=== PATIENT | female | born 1945 | race Caucasian/White ===

== ENCOUNTER → 2024-03-04 14:36 | Outpatient (REF) | payer OTHER, SELFPAY | LOC: RAD 14:36 | PROVIDERS: ATTENDING PHYSICIAN Registered Nurse | DX: M81.0 Age-related osteoporosis without current pathological fracture (principal) | CPT/HCPCS: 77080 ==

== ENCOUNTER 2024-06-23 21:18 | Emergency (ER) | payer OTHER, SELFPAY ==
[2024-06-23 21:35] VITALS: BP 168/77
[2024-06-23 21:53] LABS: % Basophils 0.6 % (0-2); % Eosinophils 0.8 % (0-6); % Immature Granulocytes 0.3 % (0-0.5); % Neutrophils 65.3 % (42.2-75.2); Absolute Eosinophils 0.1 10^3/uL (0-0.7); Absolute Lymphocytes 1.6 10^3/uL (1.2-3.4); Absolute Monocytes 0.5 10^3/uL (0.1-0.6); Absolute Neutrophils 4.2 10^3/uL (1.4-6.5); Hematocrit 39.6 % (37.0-47.0); Hemoglobin 13.9 g/dL (12.0-16.0); Mean Corp Hgb Conc. 35.1 g/dL (33.0-37.0); Mean Corpuscular Volume 82.7 fL (81.0-99.0); Mean Platelet Volume 9.2 fL (7.4-10.4); Nucleated Red Blood Cells % 0 %; Platelet Count 176 10^3/uL (130-400); Red Blood Cell Count 4.79 10^6/uL (4.20-5.40); Red Cell Dist. Width 12.5 % (11.5-14.5); White Blood Cell Count 6.5 10^3/uL (4.8-10.8)
[2024-06-23 22:07] LABS: ALT (SGPT) 22 U/L (0-35); AST (SGOT) 34 U/L (14-36); Alkaline Phosphatase 69 U/L (38-126); Blood Urea Nitrogen 15 mg/dl (7-17); Calcium 9.9 mg/dl (8.4-10.2); Carbon Dioxide 26 mmol/L (22-30); Chloride 98 mmol/L (98-107); Glucose 121 mg/dl (70-99); Lipase 166 U/L (23-300); Potassium 4.6 mmol/L (3.5-5.1); Sodium 137 mmol/L (135-145); Total Bilirubin 1.1 mg/dl (0.2-1.3); Total Protein 7.5 g/dl (6.3-8.2); eGFR > 60.00
--- NOTE | 2024-06-24 01:15 | ED.GENMED ---
History of Present Illness
General
Chief Complaint: Abdominal Pain
Source: patient
Exam Limitations: none
Time Seen by Provider: 06/24/24 00:58
History of Present Illness
History of Present Illness:
This is a 78 year old female that comes in with c/o right sided abd pain. States that she had a Hemorrhoid banding yesterday. States that she took Tylenol X 3 for her pain after dinner. Then about 1.5 hours later she started with pain on the right
upper abd that her states was a 10/10. States that she thought that if she rested it would get butter. States that it was a sharp pain and she thought it was a gallbladder attack as she knows she has gallstones. States that this continued
and she also had some labored breathing with the pain and was sweating. States that she only has a twinge now. States that she was also nauseated with the pain. Denies any fever, chills, chest pain, SOB, vomiting, diarrhea, headache, dizziness,
urinary burning.
Past History
Past History
ED Past Medical History: Hypercholesterolemia and Other (Neck pain, UTI, Gallstones)
ED Past Surgical History: Gynecological (D&C), Orthopedic (Left elbow surgery) and Other (Hemorrhoid banding, Cataracts )
Social History
Tobacco: Non-smoker
Alcohol: Occasional
Personal:
Living: with family
Review of Systems
Review of Systems
All Other Systems: ROS reviewed and negative except as documented in HPI and ROS
Constitutional: Reports no symptoms; Denies fever or chills
EENT: Reports no symptoms
Respiratory: Reports no symptoms; Denies cough or trouble breathing
Cardiac: Reports no symptoms; Denies chest pain
ABD/GI: Reports abdominal pain (Right sided) and nausea; Denies vomiting or diarrhea
: Reports no symptoms; Denies dysuria, frequency or urgency
Musculoskeletal: Reports no symptoms
Skin: Reports no symptoms
Neurological: Reports no symptoms; Denies dizzy or headache
Psychiatric: Reports no symptoms
Phy Exam
General Physical Exam
General Presentation: well appearing and no apparent distress
General age: appears stated age
General Skin: warm and dry
General Habitus: elderly
General Mental: alert
General Hydration: dry mucous membranes
ENT Exam
ENT Exam: TM's normal, pharynx normal and neck supple
Eye Exam
Eye Exam: EOMI
Cardiovascular Exam
Cardiovascular Exam: regular rate/rhythm, no edema, no murmur and normal peripheral pulses
Pulmonary Exam
Pulmonary Exam: lungs clear, no respiratory distress, no rales, chest non tender, no crackles, no rhonchi, no wheezing and no cough
Gastrointestinal Exam
Gastrointestinal Exam: normal bowel sounds, soft, no organomegaly, no pulsatile mass, non distended and tender (Epigastric and RUQ tenderness with palpation)
Musculoskeletal Exam
Musculoskeletal Exam: full ROM and no edema
Skin Exam
Skin Exam: normal color, warm/dry, no rash and no petechia
Psychiatric Exam
Psychiatric Exam: normal mood/affect
Course
Orders/Labs/Results
Orders:
Orders
06/23/24 21:38
IV Insert/Care/Rem.- Treatment PRN
06/23/24 21:43
Complete Blood Count/With Diff Urgent
Comprehensive Metabolic Panel Urgent
Lipase Urgent
06/24/24 01:14
0.9% Sodium Chloride 1000 ml [Nss] 1,000 ml IV BOLUS
US Abdomen Complete/Upper Urgent
Comment:
Reason For Exam: Upper abd pain
06/24/24 01:29
Urinalysis Reflex To Culture Urgent
Date Specimen was Collected: 06/24/24
Time Specimen was Collected: 01:26
Abnormal Lab Results
06/23/24
21:43
Glucose 121 H mg/dl
(70-99)
06/23/24 21:43
06/23/24 21:43
Hyperglycemia, Lipase normal at 166
Vital Signs
Initial and Last Documented VS:
Initial Vital Signs
Temp Pulse Resp BP Pulse Ox
97.9 F 58 19 168/77 100
06/23/24 21:35 06/23/24 21:35 06/23/24 21:35 06/23/24 21:35 06/23/24 21:35
Last Documented Vital Signs
Temp Pulse Resp BP Pulse Ox
97.9 F 58 19 177/76 98
06/23/24 21:35 06/23/24 21:35 06/23/24 21:35 06/24/24 01:31 06/24/24 01:31
MDM/Problems Addressed
Differential Diagnosis Includes:
Gallbladder disease, Renal calculus
MDM/Problems Addressed:
This is a 78 year old female that comes in with c/o right sided upper abd pain. States that this started tonight after her dinner. States that she thought was a gallbladder attack but she has never had one. States that she had labored breathing and
broke out into a sweat.
Will get labs and US. Will get urine and give IV fluids. Patient refused pain medication at this time.
Back into see patient. Explained that her blood work is normal. Your US shows that your gallbladder is fulled with gallstones. There is no gallbladder wall thickening or ductal dilation. Explained that this could have been a gallbladder attack.
Patient to stay on a low fat diet. Follow up with the family doctor. Return with any concerns.
Chronic conditions affecting care:
Gallstones,
Acute Exacerbation and/or Progression of Chronic Illness:
Gallstones
*Radiology
Radiology exam reviewed: radiology read reviewed (US-Gallbladder full of gallstones. No sonographic Sellers's sign, wall thickening, pericholecystic fluid, or other signs of cholecystitis. Common bile duct is unremarkable. Bilateral renal cyst
measuring 2.5cm on the right and 3cm on the left. Remainder of the visualized upper abdomen is uremarkable.)
*Pulse Oximetry
Patient hypoxic: no
*EKG
Interpreted by ED Provider?: NA
Rate: EKG- N/A
*Hay Sorter Interpretation
Rate: Hay Sorter- N/A
*Critical Care Note
Total Time (30-74mins, 75-104mins- exclusive of procedures): Not Applicable
ED Attending Note
-
Portions of this chart may have been created with voice recognition software.� Occasional wrong word or��sound alike� substitutions may have occurred due to the inherent limitations of voice recognition software.
Discharge Plan
Departure
Patient Disposition: Home (Routine Discharge)
Date of Disposition: 06/24/24
Time of Disposition: 03:05
Patient with high blood pressure during this ER visit?: Yes
Condition: Good
Covid-19: Not Applicable
Discharge Problem:
Acute upper abdominal pain
Instructions: Low-fat diet, Abdominal Pain, BLOOD PRESSURE
Prescriptions:
No Action
atorvastatin 10 MG tablet
20 mg PO .4X PER WK
Patient Comments:
M, W, F
vitamin B complex 1 TAB tablet
1 tab PO DAILY
cholecalciferol (vitamin D3) 1,000 UNITS tablet
1,000 units PO DAILY
fish,bora,flax oils-[id number] [[place] 3-6-9 Complex] 400 MG capsule
1 ea PO DAILY
Lion's Maulik Mushroom
550 mg PO DAILY
Ascorbic Acid/Ascorbate Sodium [Vitamin C 500 Mg Tablet Chew] 500 MG Tab.Chew
1,000 mg PO DAILY
Elderberry
400 mg PO DAILY
Zinc
6 mg PO DAILY
Activity Restrictions/Additional Instructions:
As discussed, your blood work is normal. Your US is shows that you have Gallstones but there is no acute gallbladder disease. Please stay on a low fat diet. Follow up with the family doctor for recheck. IF YOU HAVE INCREASED OR CHANGING PAIN, OR
YOU HAVE ANY OTHER CONCERNS PLEASE RETURN TO THE EMERGENCY ROOM.
Interventions
Interventions:
*Risk Screen - Suicide Last Done: 06/23/24 21:35
*General Assessment Last Done: 06/23/24 21:35
*Neglect/Abuse Screening Last Done: 06/23/24 21:35
ED- Fall Risk Assessment Last Done: 06/24/24 01:40
*ED COVID-19 Vaccine History Last Done: 06/23/24 21:35
WO-Gfkwjn-Njjlygmgwy Assessment Last Done: 06/24/24 01:40
Discharge Date and Time
Print Language: NEPALESE
[2024-06-24 01:31] VITALS: BP 177/76
[2024-06-24] MEDS: NSS 1000 IV (01:38)
[2024-06-24 01:40] VITALS: BMI 23.2
[2024-06-24 01:52] LABS: Urine Albumin Negative (Neg - Trace); Urine Bilirubin Negative (Negative); Urine Character Clear (Clear); Urine Color Yellow; Urine Glucose Negative (Negative); Urine Ketone Negative (Negative); Urine Leukocyte Negative (Negative); Urine Nitrite Negative (Negative); Urine Occult Blood Negative (Negative); Urine Urobilinogen Negative (Neg - 1+)
[2024-06-24 03:06] VITALS: BP 175/80
[2024-06-24 03:08] VITALS: BP 175/80
== END 2024-06-24 03:20 | disposition home or self-care (01) ==
LOC: EMR 21:18
PROVIDERS: Clinical Nurse Specialist Family Health; Emergency Medicine; EMERGENCY PHYSICIAN Student in an Organized Health Care Education/Training Program; FAMILY PHYSICIAN Family Medicine
DX: R10.9 Unspecified abdominal pain (principal); E78.00 Pure hypercholesterolemia, unspecified; Z87.19 Personal history of other diseases of the digestive system; Z87.440 Personal history of urinary (tract) infections
CPT/HCPCS: 99283; 96360; 76700; 80053; 81003; 83690; 85025

== ENCOUNTER → 2024-07-28 14:08 | Outpatient (REF) | payer OTHER, SELFPAY | LOC: RAD 14:08 | PROVIDERS: ATTENDING PHYSICIAN Internal Medicine Rheumatology; FAMILY PHYSICIAN Family Medicine | DX: M25.511 Pain in right shoulder (principal); M81.0 Age-related osteoporosis without current pathological fracture | CPT/HCPCS: 73030 ==